=== PATIENT | male | born 1950 | race Caucasian/White ===

== ENCOUNTER 2021-02-08 12:44 | Inpatient (IN) | payer MEDICARE, OTHER ==
[~2021-02-08] VITALS: Ht 167.6 cm; Wt 68.6 kg
--- NOTE | ~2021-02-08 | DS ---
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 He presented to the emergency room where he was evaluated by Dr. Fish with severe right-sided abdominal pain which began the night previous prior to going to bed. Evaluation in the emergency room included a CBC which showed a white count elevated to 17.3 and a normal Chem profile and urinalysis, but a CT scan performed showed a markedly distended cecum and partially distended right colon, questionable pneumatosis of the cecal wall. He also had a hiatal hernia 17 mm subpleural nodular change, which was likely benign. He is admitted for further evaluation. Additionally, the patient has had in the past, a right inguinal hernia repair by Dr. Williamson as well as an umbilical hernia repair. He has no family history of inflammatory bowel disease or colon cancer. PERTINENT PHYSICAL EXAMINATION: GENERAL: Showed a pleasant white man who did not look systemically toxic. VITAL SIGNS: Temperature is 98.5, pulse 77, blood pressure 110/58, pulse oximetry 94%. NECK: Trachea midline. CHEST: Clear with normal respiratory excursion. ABDOMEN: Nondistended. It is quite firm. There is no focal tenderness of the left side. There is mild to moderate tenderness in the right mid abdomen and a large right inguinal incision and apparent circumumbilical scar as well. There was no sign of hernia. HOSPITAL COURSE: He was admitted, given fluids and IV antibiotics on the consideration of idiopathic right colonic dilation. The findings did not appear to be consistent with a cecal volvulus per se and cecal bascule (essentially a variant) was considered a possibility though not certainty. He had some left-sided abdominal pain in addition to the right-sided abdominal pain, but no peritonitis proper. LABORATORY STUDIES: Showed improvement with systemic antibiotics to 14.1 white blood cell count. COVID test and other viral tests screening were negative as was the urinalysis. He did have a fever spike to 101. It was considered a possibility that this represented right colonic ischemia siri to typical ischemic colitis on the left side. The patient has never had colonoscopy in the past. PATIENT NAME: KHARI DE LEON DISCHARGE SUMMARY DATE OF : 46 REPORT #: [id number] PHYSICIAN: AMAYA DIEHL MD PCP: VA PARKS MD REPORT IS CONFIDENTIAL AND NOT TO BE RELEASED WITHOUT AUTHORIZATION [facility] [address] [place] [id number] Draft The patient was noted at 48 hours from admission to have an elevated bilirubin of 5.7, but other liver enzymes were normal. An abdominal KUB showed persistent dilation of the right colon with the cecum approximately 12 cm in size. The colon is not improving over time quite obviously. On that basis, a CT scan with IV contrast was repeated which continues to show marked dilation of the cecum and visualization of the appendix which might show inflammation as well. This is based on interpretation of Dr. Mohan. On February 10, 2021, he underwent laparoscopy to better characterize the problem and in particular to assure that there was no cecal bascule (variant of torsion). The cecum appeared viable on laparoscopy and was decompressed without problem. Mobilization of the cecum showed an infarcted and necrotic appendix in pieces. Operation consisted of laparoscopic decompression of the cecum, mobilization of the right colon and retrocecal area with evacuation of abscess and necrotic debris as well as partial colectomy of the cecum with concurrent appendectomy by debridement method as well as laparoscopic cholecystectomy with intraoperative cholangiogram as the gallbladder itself was quite obviously significantly inflamed. The gallbladder did show small bits of stone. A drain was placed in the retrocecal area given the necrotic appendix. At that point, it was considered probable that the cecal dilation and the right colonic dilation was essentially a segmental ileus related to the perforated appendix. He had improvement of his symptoms quite markedly initially. The following day, however, he was noted to have egress of fecal material from the right retrocolonic drain. On that basis, he underwent operation on February 11, 2021 which included laparoscopy showing inflammatory changes in the region of the right abdomen and an obvious area of ischemia of the right colon including some apparent leakage of enteric fluid, not far from a colonic staple line. On that basis, he was converted to open laparotomy where he is found to have essentially nonviable cecum. A right colectomy was performed with an end-to-side ileotransverse colostomy. Irrigation was undertaken. Cultures obtained and a drain once again placed in the right posterior abdominal area. It was unclear if cecal infarction was a progression of the underlying problem to begin with or a new phenomenon possibly related to persistent dilation of the cecum and microvascular thrombosis. Pathology report is pending. His course thereafter was relatively straightforward with daily progression of function of bowel, initiation of liquids promptly and converting ultimately to solid diet. He did have one episode of significant abdominal pain, which prompted an abdominal KUB, which showed air within the left colon. No evidence of small-bowel obstruction and certainly no evidence of complication otherwise. In due course, his white count came down to normal at 10.1. He was converted from meropenem IV antibiotic to oral PATIENT NAME: KHARI DE LEON DISCHARGE SUMMARY DATE OF : 46 REPORT #: [id number] PHYSICIAN: AMAYA DIEHL MD PCP: VA PARKS MD REPORT IS CONFIDENTIAL AND NOT TO BE RELEASED WITHOUT AUTHORIZATION [facility] [address] [place], [place] [address] Draft antibiotic Cipro and Flagyl. The cultures done at the most recent operation did confirm E coli which was pansensitive except to ampicillin. By the day of discharge, he is ambulating well, tolerating a solid diet, has incisional pain well controlled with oral analgesics. FOLLOWUP PLAN: He is return to see me in approximately 4 weeks. He is instructed to maintain a low-fiber diet for the next 4 weeks generally speaking. There may be anastomotic edema of the ileotransverse colonic anastomosis that is accounting for some of his postoperative symptoms though they are essentially resolved now. He is advised to lift no more than 20 pounds for the next three weeks. He should walk on a daily basis otherwise. DISCHARGE MEDICATIONS: Include: 1. Cipro 500 mg p.o. b.i.d., #6. 2. Flagyl 250 mg p.o. three times a day, #9. 3. Percocet 7.5/325 1-2 p.o. q.6 hours as needed for pain, #10. 4. Tylenol 1000 mg p.o. q.6 hours p.r.n. pain, #60. 5. Famotidine 20 mg p.o. q.12 hours #60, no refill. 6. He may initiate ibuprofen 600 mg p.o. q.i.d. at home if the other medications are not controlling his well enough. DISCHARGE DIAGNOSES: 1. Cecal dilation of uncertain etiology with concurrent infarcted necrotic retrocecal appendicitis and small abscess status post laparoscopy, decompression of cecum, excision and debridement of necrotic appendix and drainage of retrocecal abscess with placement of drain. 2. 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 3. Right inguinal hernia repair (distant past). 4. History of umbilical hernia repair. (The patient has no primary care physician currently.). MD GHISLAINE Ferrara/RAQUEL PATIENT NAME: KHARI DE LEON DISCHARGE SUMMARY DATE OF : 46 REPORT #: [id number] PHYSICIAN: AMAYA DIEHL MD PCP: VA PARKS MD REPORT IS CONFIDENTIAL AND NOT TO BE RELEASED WITHOUT AUTHORIZATION [address] [address] Draft /[id number] cc: Dr. Fish Copies: ~ PATIENT NAME: KHARI DE LEON DISCHARGE SUMMARY DATE OF : 46 REPORT #: [id number] PHYSICIAN: AMAYA DIEHL MD PCP: VA PARSK MD REPORT IS CONFIDENTIAL AND NOT TO BE RELEASED WITHOUT AUTHORIZATION
[2021-02-08] MEDS ORDERED: CLARITIN10 MG PO (13:05)
--- NOTE | 2021-02-11 11:20 | OR ---
[facility] [address] [place], [place] [address] Signed DATE OF OPERATION: 02/10/2021 SURGEON: Amaya Diehl MD PREOPERATIVE DIAGNOSES: 1. Distended cecum (12.5 cm ongoing tenderness and elevated white count concerning for cecal bascule). 2. Dilated gallbladder, bilirubin 5.4. Liver enzymes otherwise normal. POSTOPERATIVE DIAGNOSES: 1. Dilated cecum without ischemia; retroperitoneal retrocecal abscess with necrotic perforated appendicitis. 2. Acutely inflamed gallbladder with small stone, normal intraoperative cholangiogram. PROCEDURES PERFORMED: 1. Laparoscopy with laparoscopic decompression of cecum. 2. Mobilization of right colon, examination of retrocecal area with evacuation of abscess and necrotic debris. 3. Laparoscopic partial colectomy with concurrent appendectomy. 4. Laparoscopic cholecystectomy with intraoperative cholangiogram. ANESTHESIA: General endotracheal, Markus Tash, ROAD WORKER and local 10 cc 0.25% Marcaine with epinephrine INDICATION: This 70-year-old white man was admitted to the hospital on by me with right-sided abdominal pain, elevated white count and a CT scan finding showing a markedly dilated right colon and cecum. There was some question of possible pneumatosis of the colonic wall, though that was uncertain. He was given intravenous antibiotic cefoxitin, IV fluids, resuscitation and observation and his symptoms have essentially not improved really. He has persistent tenderness on the right side, elevated white count, and finding today on liver enzymes of a bilirubin of 5.6, though actual liver enzymes are normal. On that basis, a repeat CT scan was performed to assess for vascular ischemic change or other findings. Upon close review of the CT scan consideration of a cecal bascule was made. His colon does not have a typical appearance of a cecal volvulus and no sbo. Appendix itself is visualized today in retrospect on the previous CT scan showing inflammation and edema. There is no fecalith. I have recommended laparoscopic evaluation and right colectomy as appropriate and other indicated procedures. Notably his gallbladder has been dilated on the CT scan as well. Electronically Signed By: AMAYA DIEHL MD 02/11/21 1120 PATIENT NAME: KHARI DE LEON OPERATIVE REPORT DATE OF : 46 REPORT #: [id number] PHYSICIAN: AMAYA DIEHL MD PCP: VA PARKS MD REPORT IS CONFIDENTIAL AND NOT TO BE RELEASED WITHOUT AUTHORIZATION [facility] [address] [place], [place] [address] Signed The extent that it contributes to his current symptoms is uncertain. FINDINGS: On laparoscopy, the cecum was massively dilated to be sure, but was not ischemic in any way. Decompression allowed for visualization more fully of the cecum and right colon and again no sign of ischemia, creeping fat or anything to suggest inflammatory bowel disease. Examination of the retroperitoneum by mobilizing the right colon and cecum showed a small abscess as well as necrotic debris and ultimately what was found to be a necrotic gangrenous appendix, no doubt contributing to the problem. In aggregate, the picture appeared suggestive of a localized right colonic ileus related to the appendiceal problem. Since there was no fecalith associated with the process, a partial cecectomy was performed on the possibility of malignancy as the underlying problem. Additional portions of cecum were resected in the decompression sites as well. Additionally noted was a quite markedly inflamed gallbladder. Whether it was a secondary effect of the aforementioned problem or contributed to the right-sided colonic ileus is uncertain. Cholecystectomy was performed, which did demonstrate a small gallstone and chronic inflammation and subacute inflammation of the mucosa of the gallbladder. Cholangiogram was normal. DESCRIPTION OF PROCEDURE: The patient was brought to the operating room, given a general endotracheal anesthetic. Cefoxitin antibiotic had been administered. A Maya catheter was placed. The abdomen was clipped and prepared with chlorhexidine solution and draped sterilely. Marked distention of the abdominal wall was noted. An infraumbilical incision was made and using an open Tania cannula technique, the abdomen was entered. Pneumoperitoneum was induced to 14 mm Hg with carbon dioxide gas. There was no sign of ascites or carcinomatosis nor sign of purulence or other abnormality. The cecum was dilated enough that appeared to take up the preponderance of the abdomen. Upper abdominal examination showed the transverse colon and distal right colon to be of reasonable caliber overall. As there was no ischemia of the cecum, a 5 mm trocar was placed in the right lower quadrant and then under direct visualization, the colon was decompressed with a needle trocar device. This allowed for complete decompression of the cecum and some of the right colon as well. The site was secured with an Endoloop at that point. The colon was quite markedly friable and inflamed and edematous, but certainly not ischemic in any way. The working diagnosis at the outset of the operation was possible cecal bascule or other cecal torsion. There did not appear to be a cecal bascule based on the findings noted. On that basis, mobilization of the right colon was undertaken using electrocautery and blunt dissection reflecting the mid right colon towards the Electronically Signed By: AMAYA DIEHL MD 02/11/21 1120 PATIENT NAME: KHARI DE LEON OPERATIVE REPORT DATE OF : 46 REPORT #: [id number] PHYSICIAN: AMAYA DIEHL MD PCP: VA PARKS MD REPORT IS CONFIDENTIAL AND NOT TO BE RELEASED WITHOUT AUTHORIZATION [facility] [address] [facility] [place] [address] Signed midline and ultimately showing that in the retroperitoneum was an abscess cavity as well as necrotic debris ultimately found related to a necrotic and gangrenous appendix with perforation. The normal terminal ileum was identified as evidenced by the fat pad of trieve. With blunt dissection, the appendix and the mesoappendix were better defined and debridement was undertaken of the necrotic material. The abscess cavity, though small, had a well-formed pocket and that was drained more fully. copioius irrigation with saline cleaned up the area well. Mindful that there was no fecalith on CT scan and mindful additionally of the possibility of neoplasm accounting for the problem, the appendix and the cecal base was elevated and a portion of cecum in continuity with the appendix was excised using an Endo-CLAUDY 60 mm stapling device. There was good hemostasis. The specimen was placed in an Endobag and extracted through the infraumbilical port site. Palpation of the specimen including the entire appendix and the portion of excised cecum showed no actual fecalith nor neoplasm proper. Irrigation and examination for hemostasis were undertaken. A few clips were applied to the areas of necrotic tissue that had minimal oozing. There appeared to be two sites on the colon that had been secured with Endoloops were decompressioned and then they were excised sequentially with the Endo-CLAUDY stapling device as well. The cecum and right colon appeared quite viable. Irrigation was undertaken and once complete clearance of the fluid was noted, some fibrin glue (Tisseel) was applied to the raw surface area of the retroperitoneum. Through he right lower quadrant trocar site, a 7 mm flat Delbert drain was placed behind the cecum, secured to the skin with nylon suture and ultimately attached to bulb suction. Examination of the remaining abdomen showed a markedly distended and inflamed gallbladder. It was unclear if this was a secondary effect of the inflammatory process of the abdomen or contributing to a right colonic ileus. The gallbladder also was too tensely distended to grasp and therefore decompression was required. An additional right upper quadrant 5 mm port was placed and the gallbladder more fully examined and found to be impressively inflammed and edematous. It was deemed best to proceed with cholecystectomy, particularly given the elevated bilirubin despite normal liver enzymes. Using blunt and electrocautery dissection, the triangle of Calot was dissected free ultimately identifying the cystic duct and cystic arterial branches. The cystic artery was doubly clipped and later divided. A window was created between the gallbladder and cystic duct and the angle of safety was maintained. A clip was applied across the gallbladder cystic duct junction and transverse choledochotomy made in the cystic duct. Egress of clear bile in small amounts was noted. Using the Hutchison type Electronically Signed By: AMAYA DIEHL MD 02/11/21 1120 PATIENT NAME: KHARI DE LEON OPERATIVE REPORT DATE OF : 46 REPORT #: [id number] PHYSICIAN: AMAYA DIEHL MD PCP: VA PARKS MD REPORT IS CONFIDENTIAL AND NOT TO BE RELEASED WITHOUT AUTHORIZATION [address] [address] Signed cholangiocatheter, intraoperative cholangiography was undertaken showing free flow of contrast in the duodenum and biliary tree in good retrograde filling. The cystic duct was rather small in diameter. The catheter was removed. The cystic duct was triply clipped and divided, noting no filling defects, biliary anomalies or other abnormality of the biliary tree. The gallbladder was then dissected free in a retrograde fashion using electrocautery. The gallbladder was extracted through the infraumbilical port site using an endobag, opened on the back table by the circulating nurse and found to have chronic and subacute inflammation of mucosa as well as a small yellow gallstone. Irrigation was undertaken in subhepatic space. There was good hemostasis, but an additional aliquot of Tisseel was applied to the gallbladder fossa. Reinspection of the right lower abdomen showed no sign of bleeding, enteric leakage or other problem. The drain remained in good position. Trocars were removed under direct visualization showing no sign of bleeding. The infraumbilical fascial incision reapproximated with interrupted 0 Vicryl suture. A 10 mL of 0.25% Marcaine with epinephrine was injected into the multiple trocar sites to the abdomen. The skin was then closed with interrupted 3-0 Vicryl. Steri-Strips were applied. The patient was ultimately extubated and transferred to the recovery room in good condition having suffered no complication. Sponge, needle, and instrument counts were reported as correct x3. MD GHISLAINE Ferrara/RAQUEL /[id number] cc: Dr. Fish Copies: ~ Electronically Signed By: AMAYA DIEHL MD 02/11/21 1120 PATIENT NAME: KHARI DE LEON OPERATIVE REPORT DATE OF : 46 REPORT #: [id number] PHYSICIAN: AMAYA DIEHL MD PCP: VA PARKS MD REPORT IS CONFIDENTIAL AND NOT TO BE RELEASED WITHOUT AUTHORIZATION
--- NOTE | 2021-02-11 11:20 | HP ---
[facility] [address], [place] [address] Signed ADMISSION DATE: 02/08/2021 REASON FOR ADMISSION: Right-sided abdominal pain, colonic distention, possible colitis. HISTORY OF PRESENT ILLNESS: This 70-year-old white man presents to the emergency room, was evaluated by Dr. Fish with severe right-sided abdominal pain. It began last night and he went to bed with it, but it awakened him as it progressed. It was considered in a mid abdominal belt like configuration both on left and right side. It was not associated with diarrhea or blood per rectum. He has had no nausea or vomiting. He has had no blood per rectum or even a bowel movement since the pain began. Evaluation in the emergency room by Dr. Fish included a CBC, which showed elevation to 17.3. Chem profile was normal. Urinalysis was also essentially normal. A CT scan was performed, which showed a distended cecum and right colon with questionable pneumatosis. I did not see that particular finding, though I did look for it. He also had a left lower lobe 17 mm subpleural nodular change. There was a hiatal hernia as well. The patient denies any family history of colon cancer or inflammatory bowel disease. He has never had problems of a similar nature in the past. PAST MEDICAL HISTORY: Includes neck surgery in [place] as well as hernia operation in the past. ALLERGIES: He has no known drug allergies. MEDICATIONS: His only medication is Claritin as needed for allergies. REVIEW OF SYSTEMS: Denies any chest pain or shortness of breath. He has had no hematemesis or blood per rectum. Denies any hemoptysis. His pain is dominantly in the right side and is persistent and ril-[id number]-[id number] grade. 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 He is unmarried () and lives alone. 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 Electronically Signed By: AMAYA DIEHL MD 02/11/21 1120 PATIENT NAME: KHARI DE LEON HISTORY AND PHYSICAL DATE OF : 46 REPORT #: [id number] PHYSICIAN: AMAYA DIEHL MD PCP: VA PARKS MD REPORT IS CONFIDENTIAL AND NOT TO BE RELEASED WITHOUT AUTHORIZATION [facility] [address], [place] [address] Signed PHYSICAL EXAMINATION: GENERAL: Pleasant white man, who does not look systemically toxic. VITAL SIGNS: On presentation, temperature was 98.5, pulse now 77, blood pressure 110/58, pulse oximetry on room air is 94%. NECK: Trachea is midline. CHEST: Shows normal respiratory excursion. Pulses regular. ABDOMEN: Nondistended. It is firm, however. There is no focal tenderness on the left side. There is mild to moderate tenderness in the right mid abdomen. There is a large right inguinal incision and apparent circumumbilical scar as well. No sx of hernia. EXTREMITIES: Show no clubbing, cyanosis, or edema. Extremities show petechiae and femoral pulses are 2/[address] scan was reviewed in detail by me. The liver appears normal as does the gallbladder. The spleen and kidneys are normal as is the aorta. There was marked good dilation of the cecum and right colon, but colonic wall appears reasonably thin. The transverse colon and left colon are normal in caliber. Small bowel appears normal. There is no sign of small-bowel obstruction. There does not be appear to be a finding of cecal or right colonic volvulus. The mid transverse colon on AP projection appears to dip down low in the abdomen. I do not see the actual pneumatosis of the colon as was described by the radiologist, though my screen for resolution is likely less capable. ASSESSMENT: It is uncertain the source of his issue, but he does have right colonic distention and concerns of ischemia are made on that basis. He does not appear to have volvulus and there is no pericolonic fluid or signs of viv perforation. I discussed these findings with him in detail. Concern is always maintained for possible idiopathic right colonic ischemia, for which perforation could be a natural progression, however, unlikely that might be. I think the best thing in his situation would be admitted to the hospital, maintain hydration and bowel rest and give IV antibiotics and clinically monitor. At some point, he will need a colonoscopy; he has never undergone colonoscopy in the past. If his symptoms should worsen and he require emergency operation, it can be promptly performed while in the hospital and this won't rely upon his return to the ER should symptoms progress. He agrees with this approach and will be admitted on that basis. Amaya Diehl MD Electronically Signed By: AMAYA DIEHL MD 02/11/21 1120 PATIENT NAME: KHARI DE LEON HISTORY AND PHYSICAL DATE OF : 46 REPORT #: [id number] PHYSICIAN: AMAYA DIEHL MD PCP: VA PARKS MD REPORT IS CONFIDENTIAL AND NOT TO BE RELEASED WITHOUT AUTHORIZATION [facility] [address] [place], [place] [address] Signed /[facility] /[id number] Copies: ~ Electronically Signed By: AMAYA DIEHL MD 02/11/21 1120 PATIENT NAME: KHARI DE LEON HISTORY AND PHYSICAL DATE OF : 46 REPORT #: [id number] PHYSICIAN: AMAYA DIEHL MD PCP: VA PARKS MD REPORT IS CONFIDENTIAL AND NOT TO BE RELEASED WITHOUT AUTHORIZATION
--- NOTE | 2021-02-12 14:50 | PATH ---
[facility] [address] [place] [address], [place] [address] Signed SPECIMEN(S): A PORTION OF CECUM WITH APPENDIX SPECIMEN(S): B ADDITIONAL PORTION OF CECUM X2 SPECIMEN(S): C GALLBLADDER SPECIMEN SOURCE: A. PORTION OF CECUM WITH APPENDIX B. ADDITIONAL PORTION OF CECUM X2 C. GALLBLADDER CLINICAL HISTORY: Gangrenous perforated appendix; right colon distention; acute calculous cholecystitis FINAL PATHOLOGIC DIAGNOSIS: A. Portion of cecum with appendix, segmental resection: - Acute necrotizing appendicitis. - Colonic mucosa with areas of transmural necrosis, acute serositis, and serosal adhesions. B. Additional portion of cecum, segmental resection: - Reactive colonic mucosa with acute serositis and serosal adhesions. C. Gallbladder, cholecystectomy: - Chronic cholecystitis. DDF:cml:C2NR MICROSCOPIC EXAMINATION: Histologic sections of all submitted blocks are examined by light microscopy. These findings, together with the gross examination, support the pathologic diagnosis. GROSS DESCRIPTION: Three specimens are received in three containers, labeled "MH." A. The specimen, labeled "MH, A," and designated on the requisition "portion of cecum with appendix," is received in formalin and consists of an 8.5 cm long, up to 0.7 cm in diameter appendix with attached mesoappendix up to 2.1 cm wide. Additionally the proximal appendix has an attached, 1.5 cm long, up to 3.8 cm in diameter segment of cecum. The proximal cecal margin is closed by a 4.6 cm long staple line which is removed and the margin is inked black. The appendiceal serosa is ragged, childs to dark brown, and diffusely covered in valdivia exudate. The appendiceal wall is markedly thinned and 2.5 cm from the staple line is a 0.3 x 0.3 cm transmural defect that is PATIENT NAME: KHARI DE LEON PATHOLOGY DATE OF : 46 REPORT #: [id number] PHYSICIAN: SANDRO PATHOLOGY PCP: VA PARKS MD REPORT IS CONFIDENTIAL AND NOT TO BE RELEASED WITHOUT AUTHORIZATION [facility] [address] [place] [address], [place] [address] Signed inked blue. An additional transmural defect is not grossly identified. The cecal serosa is ragged, childs to dark red with multiple focal adhesions. The appendiceal mucosa is childs to black and somewhat ragged. The appendiceal lumen contains dark red liquid. Fecaliths are absent. The cecal mucosa is childs-pink with usual folds and without a discrete mass/lesion. The attached adipose tissue is briefly palpated for lymph nodes and no lymph nodes are grossly found. Telephone Operators Supervisor sections are submitted in two cassettes (A1-A2). Note: Per container "Rec'd fresh. I put formalin on it. -Donna JONES)" B. The specimen, labeled "MH, B," and designated on the requisition "additional portion of cecum 2," is received in formalin and consists of two undesignated, unopened bowel segments. The first bowel segment measures 4.2 x 1.5 x 0.7 cm and is closed by a single 4.4 cm long staple line which is removed and the underlying tissue is inked black. Additionally within the staple line is a blue suture. The bowel segment has a scant amount of attached adipose tissue up to 0.1 cm wide. The bowel serosa is childs, smooth, and glistening. The bowel mucosa childs with a lack of folds and without an additional discrete mass/lesion. The second bowel segment is 5.5 x 1.7 x 1.6 cm and is closed by a single, 5.7 cm long staple line which is removed and the underlying tissue is inked blue. Opposite to the staple line is a blue suture. The bowel serosa is childs to brown, glistening with rare focal delicate childs adhesions. The bowel segment has attached adipose tissue up to 1.2 cm wide. The adipose tissue is somewhat incarcerated by the blue suture. The bowel mucosa is childs with a slight lack of folds, and without a discrete mass/lesion. Telephone Operators Supervisor sections are submitted as follows: B1 first bowel segment B2 second bowel segment C. The specimen, labeled "MH, C," and designated on the requisition "gallbladder," is received in formalin and consists of: Specimen: Previously incised gallbladder. Dimensions: Upon reconstruction, 9.0 x 3.5 x 2.2 cm. Serosa: Mostly fat covered, childs-white to green, smooth, and glistening. Cystic Duct: 0.4 cm in diameter, patent, and the margin is inked blue. Calculi: Absent within specimen and specimen container. Mucosa: Green, velvety, and glistening with rare, focal, and scanty areas of PATIENT NAME: KHARI DE LEON PATHOLOGY DATE OF : 46 REPORT #: [id number] PHYSICIAN: SANDRO RAMIREZ PCP: VA PARKS MD REPORT IS CONFIDENTIAL AND NOT TO BE RELEASED WITHOUT AUTHORIZATION [address] [address] Signed yellow stippling. Wall thickness: Uniform and 0.2 cm. Lymph node: No pericystic lymph nodes are grossly identified. Additional: None. Telephone Operators Supervisor sections are submitted in cassette C1. AI (under the direct supervision of a pathologist) The Gross Description was prepared using a voice recognition system. The report was reviewed for accuracy; however, sound-alike word errors, addition and/or deletions may occur. If there is any question about this report, please contact Client Services. PERFORMING LABORATORY: The technical component [place] [address] (Director Of Nurses Registry: Samina Rondon MD; CLIA# [id number]). Professional interpretation was performed [place] [address] (CLIA# [id number]). Diagnostician: Clement Knight DO Pathologist Electronically Signed 02/12/2021 Copies: ~ PATIENT NAME: KHARI DE LEON PATHOLOGY DATE OF : 46 REPORT #: [id number] PHYSICIAN: SANDRO RAMIREZ PCP: VA PARKS MD REPORT IS CONFIDENTIAL AND NOT TO BE RELEASED WITHOUT AUTHORIZATION
[2021-02-17] MEDS ORDERED: OXYCODON-ACETA1 EAC2 PO (09:12)
[2021-02-17] MEDS ORDERED: METRONIDAZOLE250 MG PO (09:12)
[2021-02-17] MEDS ORDERED: CIPROFLOXACIN500 MG PO (09:12)
[2021-02-17] MEDS ORDERED: ACETAMINOPHEN500 MG PO (09:13)
[2021-02-17] MEDS ORDERED: FAMOTIDINE20 MG PO (09:13)
--- NOTE | 2021-02-18 14:44 | OR ---
[facility] [address], [place] [address] Signed DATE OF OPERATION: 02/11/2021 SURGEON: Amaya Diehl MD PREOPERATIVE DIAGNOSES: 1. Fecal drainage from right retrocecal abdominal drain. 2. Status post laparoscopic cecal decompression for dilated cecum, retroperitoneal abscess drainage and appendectomy and cholecystectomy with cholangiogram (February 10, 2021). 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 PROCEDURES: 1. Diagnostic laparoscopy. 2. Open right colectomy with end-to-side ileotransverse colostomy. ANESTHESIA: General endotracheal, Rob Rucker [employer]ORY TE[employer]ER, and postoperative bilateral subcostal TAP blocks. INDICATION: This 70-year-old white man was admitted on 02/08/2021 with marked dilation of the cecum and portion of the right transverse colon with no sign of proximal small bowel obstruction. The clinical appearance was not that of cecal volvulus. Initial evaluation and treatment included IV antibiotics, IV fluids, and monitoring and he did not seem to have improvement, only persistent distention. He underwent a 2nd CT scan, which showed persistence of the dilated cecum, findings of an inflamed appendix, and no other abnormality. He yesterday underwent laparoscopy on the thought this may represent a cecal bascule rather than typical cecal volvulus. Decompression of the cecum was undertaken and the cecum appeared viable. Mobilization of the right colon showed a completely infarcted and necrotic appendix with small abscess. This was resected back to what appeared to be normal cecum and the base of the cecum was transected in continuity with the appendix. Puncture sites on the anterior wall of the cecum were secured with a stapling device as well. He was noted also to have concurrent acute cholecystitis. On that basis, cholecystectomy with cholangiogram was performed. The patient improved quite markedly overnight and evaluation this morning showed the drain fluid to be serous and without sign of enteric leakage. Late in the day, he had this rather sudden onset of right-sided abdominal pain and was noted to have fecal Electronically Signed By: AMAYA DIEHL MD 02/18/21 1444 PATIENT NAME: KHARI DE LEON OPERATIVE REPORT DATE OF : 46 REPORT #: [id number] PHYSICIAN: AMAYA DIEHL MD PCP: VA PARKS MD REPORT IS CONFIDENTIAL AND NOT TO BE RELEASED WITHOUT AUTHORIZATION [facility] [address] [place] [id number] Signed drainage out of the retrocecal drain. On that basis, I recommended laparoscopy to assess the source of his fecal leakage and given the dilated cecum that was previously noted with high risk for progressing to ischemia, possible colectomy as appropriate. The risks of bleeding, infection, need for ostomy, need for right colon resection and so forth were reviewed in detail. FINDINGS: On laparoscopy, he was found to have the peritoneal cavity essentially free of peritoneal contamination. However, in the retrocecal area was infarcted cecum in the area of previous appendectomy. There were additionally several micro leaks on the anterior wall of the cecum, not on the staple line itself, but only a few centimeters from it. Quite clearly, the cecum was nonviable, and on that basis, colectomy was required. On that basis also, conversion to open operation was undertaken. Ultimately performed was right colectomy with ileotransverse colostomy in an end-to-side configuration. The anastomosis portion of the transverse colon was quite viable, nondilated, and corresponding to good mesenteric flow of middle colic artery branches, which were easily visualized. There were no other findings of concern. A drain was placed in the right posterior abdomen at the conclusion of the procedure. DESCRIPTION OF PROCEDURE: The patient was brought to the operating room, given a general endotracheal anesthetic. The patient has been on meropenem antibiotic. After satisfactory general endotracheal anesthesia, a Maya catheter was placed. The abdomen was prepared with chlorhexidine solution after removal of the drain that had fecal material within it. The previous infraumbilical incision was opened and pneumoperitoneum was achieved to a level of 14 mmHg of carbon dioxide gas. Intraabdominal inspection showed no sign of generalized peritonitis or generalized peritoneal contamination. However, the cecum itself was dilated and had a far less viable appearance today. A staple line that was on the anterior wall of the cecum that had secured the initial puncture site was intact, however, adjacent to it a few millimeters was the area of obvious leakage. The cecum itself appeared to be nonviable though the ascending colon appeared normal. There was no abnormal twist or kink to the cecum, but it certainly did not appear viable and further efforts at its repair would be futile. On that basis, the laparoscope was removed and plans made for laparotomy. A midline incision was made extending from below the umbilicus to somewhat above it and later extended inferiorly. The abdomen was entered and examination showed no sign of free fluid or free peritoneal contamination. The cecum and proximal ascending colon were rather nonviable and ischemic, though not black or gangrenous in any way. The Bookwalter retractor was affixed to the table and the small bowel was packed to the left side of the abdomen. Mobilization of the right colon was undertaken showing gross Electronically Signed By: AMAYA DIEHL MD 02/18/21 1444 PATIENT NAME: KHARI DE LEON OPERATIVE REPORT DATE OF : 46 REPORT #: [id number] PHYSICIAN: AMAYA DIEHL MD PCP: VA PARKS MD REPORT IS CONFIDENTIAL AND NOT TO BE RELEASED WITHOUT AUTHORIZATION [facility] [address] [place], [place] [address] Signed contamination and fecal soilage in the retroperitoneum adjacent to the cecum. The area of previous resection appeared to have held no staple line at all. Quite clearly, right colectomy would be required. The ileum was freed from its peritoneal attachments, and using blunt electrocautery dissection, the entire right colon mobilized to the midline. There was no sign of retroperitoneal abnormality other than the contamination from the diseased colon. The hepatic flexure was mobilized. Several clips were applied to vascular pedicles as necessary, and ultimately, the mid transverse colon and omentum freed. Transillumination of the mesocolon at the transverse portion showed two dominant vascular pedicles (middle colic arteries). An area demarcated as appropriate for resection was thus identified. The mesentery was scored with electrocautery. The vascular pedicles were sequentially secured with hemostats and ligated with 0 silk ties. A CLAUDY stapling device was used to transect the ileum a few centimeters from the ileocecal junction as well as the transverse colon. An additional segment was taken for good measure to assure that the middle colic artery would supply this portion of the transverse colon for a viable anastomosis. The specimen was subsequently photographed by the circulating nurse. Plans were then made for anastomosis. The staple line of the transected colon was oversewn with interrupted 3-0 silk sutures to assure no leakage. An end-to-side ileal transverse colostomy was then performed in a 2-layer technique of interrupted 3-0 silk suture and interrupted 3-0 Vicryl suture. Both proximal and distal segments appeared quite viable. The mesenteric defect was reapproximated with interrupted 3-0 silk suture. Irrigation was undertaken of the abdomen, particularly in the retroperitoneal area. Through previous drain site, a 7 mm flat Delbert drain was insinuated into the abdominal cavity, placed in the area of recent contamination. It was ultimately attached to bulb suction. The small bowel was released from its encumbrance of packing and the omentum replaced over the abdominal contents including the area of the anastomosis. The midline fascia was reapproximated with running bidirectional #1 PDS suture. Subcutaneous tissue was irrigated and the skin closed with running subcuticular 3-0 Vicryl. Steri-Strips were applied on the midline incision. An Acticoat dressing was applied on the midline incision and the drain site. The patient was ultimately given bilateral subcostal TAP blocks by the nail kegger. He was extubated and ultimately transferred to the recovery room in good condition. ESTIMATED BLOOD LOSS: Less than 50 mL. Electronically Signed By: AMAYA DIEHL MD 02/18/21 1444 PATIENT NAME: KHARI DE LEON OPERATIVE REPORT DATE OF : 46 REPORT #: [id number] PHYSICIAN: AMAYA DIEHL MD PCP: VA PARKS MD REPORT IS CONFIDENTIAL AND NOT TO BE RELEASED WITHOUT AUTHORIZATION [address] [address] Signed COUNTS: Sponge, needle, and instruments counts were reported as correct x3. MD GHISLAINE Ferrara/RAQUEL /[id number] cc: Dr. Fish Copies: ~ Electronically Signed By: AMAYA DIEHL MD 02/18/21 1444 PATIENT NAME: KHARI DE LEON OPERATIVE REPORT DATE OF : 46 REPORT #: [id number] PHYSICIAN: AMAYA DIEHL MD PCP: VA PARKS MD REPORT IS CONFIDENTIAL AND NOT TO BE RELEASED WITHOUT AUTHORIZATION
--- NOTE | 2021-02-18 14:58 | PATH ---
[facility] [address], [place] [address] Signed SPECIMEN(S): A RIGHT COLON AND CECUM SPECIMEN SOURCE: A. RIGHT COLON AND CECUM CLINICAL HISTORY: Status post partial cecectomy with appy status post, with leakage of bowel. Right-sided ischemic colitis. FINAL PATHOLOGIC DIAGNOSIS: Right colon and cecum, resection: - Focal transmural cecal defect with features of perforation, associated abscess, acute serositis, and serosal fibrous adhesions. - Ileum with acute serositis. - One lymph node with no evidence of malignancy. - Viable surgical margins. - Additional segment of bowel: Segment of colon with no histopathologic abnormality; viable surgical margins. - No evidence of malignancy. NAL:cml:C2NR MICROSCOPIC EXAMINATION: Histologic sections of all submitted blocks are examined by light microscopy. These findings, together with the gross examination, support the pathologic diagnosis. GROSS DESCRIPTION: The specimen, labeled "MH," and designated on the requisition "right colon and cecum, S/P partial colectomy with appy S/P, with leakage of bowel," is received in formalin and consists of one previously partially opened colonic segment and one additional bowel segment. The additional bowel segment is 3.7 cm long, 2.6 cm in diameter, unoriented, and has attached adipose tissue up to 7.5 cm wide. One end is closed by a 4.2 cm long staple line which is removed and the underlying tissue is inked red. The opposing end is closed by a 6.8 cm staple line which is removed and the underlying tissue is inked green. The bowel serosa is childs, smooth, glistening. The bowel mucosa is childs to brown with usual folds and without a discrete mass/lesion. The attached adipose tissue is palpated for lymph nodes and no lymph nodes are grossly identified. PATIENT NAME: KHARI DE LEON PATHOLOGY DATE OF : 46 REPORT #: [id number] PHYSICIAN: SANDRO PATHOLOGY PCP: VA PARKS MD REPORT IS CONFIDENTIAL AND NOT TO BE RELEASED WITHOUT AUTHORIZATION [facility] [address], [place] [address] Signed The colonic segment is 21.7 cm long, from 2.9 up to 5.7 cm in diameter, has an attached terminal ileum and has attached adipose tissue up to 17.2 cm wide. A grossly identifiable appendix is not identified. The distal colonic margin is closed by a 4.2 cm long staple line which is removed and the underlying tissue is orange. The proximal terminal ileum is closed by a 2.8 cm long staple line which is removed and the underlying tissue is inked black. The cecal pouch has a 7.2 x 3.2 cm transmural defect consistent with a possible previous incision. The defect is without grossly identifiable sutures or carla and is inked blue. Adjacent to the transmural defect, 1.0 cm away, is an ill-defined, 3.5 cm in greatest dimension staple line that is embedded in adhesions and adipose tissue. This staple line contains a black single suture. The staple line is removed and the underlying tissue is inked green. The staple line is without an associated mass/lesion. The serosa on the cecal pouch, surrounding the transmural defect is dark brown with multiple adhesions and areas of valdivia exudate. The remaining serosa is childs to brown with focal areas of delicate adhesions. The colonic mucosa is childs to brown with a slight loss of folds in the cecal pouch. Additionally the cecal pouch, adjacent to the blue inked transmural defect, has focal areas of submucosal hemorrhage up to 1.5 cm in greatest dimension. An additional discrete mass/lesion is not grossly identified. The attached terminal ileum is 3.8 cm long, 1.7 cm in diameter, and the serosa is childs, glistening with focal rare adhesions. The terminal ileum mucosa childs with usual folds and without a discrete mass/lesion. The attached adipose tissue is palpated for nodes and no lymph nodes are grossly identified. Customer Operations Representative sections are submitted as follows: A1-A2 additional bowel segment A3 colonic transmural defect with adjacent hemorrhage A4 colonic transmural defect with adjacent adherent valdivia exudate A5 colonic transmural defect to green inked staple line adjacent to defect A6 remaining colon A7 ileocecal valve A8 terminal ileum AI (under the direct supervision of a pathologist) The Gross Description was prepared using a voice recognition system. The report was reviewed for accuracy; however, sound-alike word errors, addition and/or deletions may occur. If there is any PATIENT NAME: KHARI DE LEON PATHOLOGY DATE OF : 46 REPORT #: [id number] PHYSICIAN: SANDRO RAMIREZ PCP: VA PARKS MD REPORT IS CONFIDENTIAL AND NOT TO BE RELEASED WITHOUT AUTHORIZATION [facility] [address] [place] [id number] Signed question about this report, please contact Client Services. PERFORMING LABORATORY: The technical component was performed by [facility], [address] [place] [id number] (Media Center Specialist: Samina Rondon MD; CLIA# [id number]). Professional interpretation was performed by [facility], [facility], [address] [place] [address] (CLIA# [id number]). Diagnostician: Misty Palomo MD Pathologist Electronically Signed 02/18/2021 Copies: ~ PATIENT NAME: KHARI DE LEON PATHOLOGY DATE OF : 46 REPORT #: [id number] PHYSICIAN: SANDRO RAMIREZ PCP: VA PARKS MD REPORT IS CONFIDENTIAL AND NOT TO BE RELEASED WITHOUT AUTHORIZATION
== END 2021-02-18 15:00 | disposition home or self-care (01) | DRG 329 ==
LOC: ED 12:44 → MS 16:02
PROVIDERS: ADMIT Surgery; ATTEND Surgery
PROC: 0DBH4ZZ Excision of Cecum, Percutaneous Endoscopic Approach (ICD-10-PCS; 2021-02-10)
PROC: BF121ZZ Fluoroscopy of Gallbladder using Low Osmolar Contrast (ICD-10-PCS; 2021-02-10)
PROC: 0DTJ4ZZ Resection of Appendix, Percutaneous Endoscopic Approach (ICD-10-PCS; principal; 2021-02-10 13:25)
PROC: 0D1L0Z4 Bypass Transverse Colon to Cutaneous, Open Approach (ICD-10-PCS; 2021-02-11)
PROC: 0DBF0ZZ Excision of Right Large Intestine, Open Approach (ICD-10-PCS; 2021-02-11)
PROC: 0DJD4ZZ Inspection of Lower Intestinal Tract, Percutaneous Endoscopic Approach (ICD-10-PCS; 2021-02-11)
DX: K59.39 Other megacolon (principal); K68.19 Other retroperitoneal abscess; K35.33 Acute appendicitis with perforation, localized peritonitis, and gangrene, with abscess; K55.9 Vascular disorder of intestine, unspecified; K80.00 Calculus of gallbladder with acute cholecystitis without obstruction; Z20.822 Contact with and (suspected) exposure to COVID-19
CPT/HCPCS: 00790; 74018; 74177; 74300; 80048; 80053; 81001; 83605; 85025; 86140; 87070; 87075; 87205; 88304; 88307; 94760; 96375; 96376; 99285-25; C9803; J0131; J0330; J0694; J1100; J1644; J1885; J2001; J2185; J2270; J2405; J2704; J2795; J3010; J3475; J7030; J7121; Q9967; U0003

== ENCOUNTER 2021-11-24 07:05 | Day surgery (SDC) | payer MEDICARE, OTHER ==
[~2021-11-24] VITALS: Ht 167.6 cm; Wt 63.2 kg
[~2021-11-24 07:05] MED LIST: ACETAMINOPHEN500 MG PO; CIPROFLOXACIN500 MG PO; CLARITIN10 MG PO; FAMOTIDINE20 MG PO; METRONIDAZOLE250 MG PO; OXYCODON-ACETA1 EAC2 PO
--- NOTE | 2021-11-24 08:23 | NUR ---
VISITED WITH PT PRIOR TO SURGERY. DAUGHTER WAS WITH PT. PT EXPRESSED FEELING CONFIDENT WITH PROCEEDURE. PRAYED WITH PT.
--- NOTE | 2021-11-24 09:04 | NUR ---
11/24/21 0904 Sejal Zhang 0843 PT ARRIVED IN PACU SLEEPY WITH NO C/O'S. 0855 DR AT BEDSIDE. ALL QUESTIONS ANSWERED. 903 RESTING. REU.
--- NOTE | 2021-11-25 19:03 | OR ---
[facility] [address], [place] [address] Signed DATE OF OPERATION: 11/24/2021 SURGEON: Amaya Diehl MD PREOPERATIVE DIAGNOSES: 1. History of right colectomy for ischemic disease. 2. Screening colonoscopy (no prior colonoscopy). POSTOPERATIVE DIAGNOSES: 1. Ileocolic anastomotic, small nodule (benign). 2. Low rectal polyp (small). PROCEDURE: Total colonoscopy with cold morcellation polypectomy of low rectal polyp and excision of anastomotic nodule. ANESTHESIA: Intravenous sedation fentanyl 100 mcg and Versed 5 mg. INDICATION: This 71-year-old white man is a patient of Dr. Parks. More than a year ago, he underwent appendectomy for necrotic perforated appendicitis manifesting most dominantly as a dilated cecum. He required return to the OR following appendectomy and decompression of the cecum for cholecystectomy and right colectomy when fecal drainage was noted from his retrocolic drain. He has recovered fully from that. Of special note, he has never had colonoscopy or colon evaluation in the past. He has no symptoms of bleeding, diarrhea or constipation and no family history of colon cancer. He is admitted at this time to undergo colonoscopy. He understands the risks of bleeding, infection, and perforation. FINDINGS: Prep was good. Complete colonoscopy was undertaken to the ileocolic anastomosis. There was a small nodule associated with the anastomotic area, probably a granuloma. Two small silk sutures were seen from prior anastomosis as well. The lesion is almost certainly benign. Additionally, there was a very small polyp of the low rectum, which was excised. The remaining colon was normal. PROCEDURE IN DETAIL: The patient was brought to the endoscopy suite and placed in lateral decubitus position given intravenous sedation to the point of slurred speech and nystagmus. Full Electronically Signed By: AMAYA DIEHL MD 11/25/21 190 PATIENT NAME: KHARI DE LEON OPERATIVE REPORT DATE OF : 46 REPORT #: [id number] PHYSICIAN: AMAYA DIEHL MD PCP: VA PARKS MD REPORT IS CONFIDENTIAL AND NOT TO BE RELEASED WITHOUT AUTHORIZATION [facility] [address], [place] [address] Signed cardiopulmonary monitoring was maintained. Digital rectal examination was normal including normal prostate. Olympus video colonoscope was passed in the rectum and manipulated throughout the colon ultimately intubating the ileocolic anastomotic area. There were two small sutures noted from prior anastomosis. There was a submucosal nodule, possibly a granuloma. This was excised though it did not appear to be worrisome for malignancy. The scope was then withdrawn and examination throughout showed no sign of abnormality into the lowest part of the rectum. There was a small polyp, this was excised with cold morcellation technique. The scope was removed. The patient was taken to the recovery room in good condition. CONCLUDING DIAGNOSIS: Small polyp of the rectum and anastomotic nodule almost certainly benign. PLAN: Recommend repeat colonoscopy in seven years, sooner if clinically indicated. He will return to the ongoing care of Dr. Parks. MD GHISLAINE Ferrara/RAQUEL /[id number] cc: Dr. Parks Copies: ~ Electronically Signed By: AMAYA DIEHL MD 11/25/21 1903 PATIENT NAME: KHARI DE LEON OPERATIVE REPORT DATE OF : 46 REPORT #: [id number] PHYSICIAN: AMAYA DIEHL MD PCP: VA PARKS MD REPORT IS CONFIDENTIAL AND NOT TO BE RELEASED WITHOUT AUTHORIZATION
== END 2021-11-24 09:43 | disposition home or self-care (01) ==
LOC: DS 07:05 → OPS 07:05
PROVIDERS: ATTEND Surgery
PROC: 0DBP8ZZ Excision of Rectum, Via Natural or Artificial Opening Endoscopic (ICD-10-PCS; principal; 2021-11-24 08:30)
DX: Z12.11 Encounter for screening for malignant neoplasm of colon (principal); K62.1 Rectal polyp; K63.89 Other specified diseases of intestine; Z90.49 Acquired absence of other specified parts of digestive tract; Z98.0 Intestinal bypass and anastomosis status
CPT/HCPCS: 88305; 99153; G0500; J2250; J3010; J7121

== ENCOUNTER 2024-05-18 05:38 | Day surgery (SDC) | payer MEDICARE, OTHER ==
[2024-05-03 15:19] VITALS: BP 135/76
[~2024-05-18] VITALS: Ht 167.6 cm; Wt 65.9 kg
[~2024-05-18 05:38] MED LIST changes: +LACTATED RINGER'S 1,000 ML IV SCH; +SLEEP AID25 M2 PO
[2024-05-18 05:55] VITALS: BP 113/79
[2024-05-18] MEDS ORDERED: LACTATED RINGER'S 1,000 ML IV SCH (06:30)
[2024-05-18] MEDS ORDERED: CEFTRIAXONE SODIUM 1 GM VIAL IV ONE (06:46)
[2024-05-18] MEDS ORDERED: SODIUM CHLORIDE 0.9% 100 ML IV ONE (06:49)
[2024-05-18] MEDS ORDERED: LIDOCAINE HCL 2% 20 ML MDV ONE (06:54)
[2024-05-18] MEDS ORDERED: SODIUM CHLORIDE 0.9% IV SCH (07:00)
[2024-05-18] MEDS ORDERED: CEFTRIAXONE SOD IV SCH (07:00)
[2024-05-18] MEDS ORDERED: IBLOOD GLUCOSE TEST STRIP 1 EA TEST VI PRN ×2 (07:00→08:00)
[2024-05-18] MEDS ORDERED: LIDOCAINE HCL 1% 5 ML SDV INJ ONE (07:00)
[2024-05-18] MEDS ORDERED: CEFTRIAXONE SOD 1,000 MG in DEXTROSE 5% 100 ML IV SCH (07:00)
[2024-05-18] MEDS ORDERED: CEFTRIAXONE SODIUM 1 GM in SODIUM CHLORIDE 0.9% 100 ML IV SCH (07:00)
[2024-05-18] MEDS ORDERED: TRAMADOL HCL 50 MG TAB PO PRN (07:30)
[2024-05-18] MEDS ORDERED: ondansetron HCL 4 MG/2 ML VIAL IV PRN ×2 (07:30→08:00)
[2024-05-18] MEDS ORDERED: NALOXONE HCL 0.4 MG SYR IV PRN (08:00)
[2024-05-18] MEDS ORDERED: fentaNYL citrate 50 MCG/ML SDV IV PRN (08:00)
[2024-05-18] MEDS ORDERED: METOCLOPRAMIDE HCL 10 MG/2 ML SDV IV PRN (08:00)
[2024-05-18] MEDS ORDERED: PROCHLORPERAZINE EDISYLATE 10 MG/2 ML VIAL IV PRN (08:00)
[2024-05-18] MEDS ORDERED: droPERidol 5 MG/2 ML VIAL IV PRN (08:00)
--- NOTE | 2024-05-18 08:17 | NUR ---
05/18/24 0817 Danielle Clifton 0804-PT ARRIVES TO PACU VIA STRETCHER, RESTING SEMI FOWLERS, PT RESPONSIVE TO NOXIOUS STIMULI BEGINNING TO OPEN EYES, OPA IN PLACE AND VSS ON 10L VIA MASK, RR EVEN AND UNLABORED. 0805-OPA REMOVED AND TITRATED TO RA, VS REMAIN STABLE. PT'S BP LOW, ANESTHESIA AT BEDSIDE, MEDICATION GIVEN. 0810-PT'S BP IMPROVED, VSS ON RA. PT DENIES PAIN OR NAUSEA.
[2024-05-18 08:40] VITALS: BP 103/59
--- NOTE | 2024-05-23 18:35 | PATH ---
[facility] [address] [place], [place] [address] Signed SPECIMEN(S): A LEFT LATERAL BASE PROSTATE BIOPSY SPECIMEN(S): B LEFT LATERAL MID PROSTATE BIOPSY SPECIMEN(S): C LEFT LATERAL APEX PROSTATE BIOPSY SPECIMEN(S): D LEFT MEDIAL BASE PROSTATE BIOPSY SPECIMEN(S): E LEFT MEDIAL MID PROSTATE BIOPSY SPECIMEN(S): F LEFT MEDIAL APEX PROSTATE BIOPSY SPECIMEN(S): G RIGHT MEDIAL BASE PROSTATE BIOPSY SPECIMEN(S): H RIGHT MEDIAL MID PROSTATE BIOPSY SPECIMEN(S): I RIGHT MEDIAL APEX PROSTATE BIOPSY SPECIMEN(S): J RIGHT LATERAL BASE PROSTATE BIOPSY SPECIMEN(S): K RIGHT LATERAL MID PROSTATE BIOPSY SPECIMEN(S): L RIGHT LATERAL APEX PROSTATE BIOPSY SPECIMEN(S): M LEFT TRANSITION ZONE SPECIMEN(S): N RIGHT TRANSITION ZONE CLINICAL HISTORY: Elevated PSA (last PSA 17.4 on 02/29/2024) FINAL PATHOLOGIC DIAGNOSIS: A. Left lateral base: - Benign prostatic glandular tissue. B. Left lateral mid: - Prostatic adenocarcinoma. - Predicted Milton score: 3 + 3 = 6/10; Grade Group 1 - Tumor quantitation: - Tumor present in one of one core. - Longest length of confluent tumor: 1 mm. - Tumor involves 5% of prostatic glandular tissue. - Perineural invasion: Not identified C. Left lateral apex: - Benign prostatic glandular tissue. D. Left medial base: - Benign prostatic glandular tissue. E. Left medial mid: - Benign prostatic glandular tissue. F. Left medial apex: - Benign prostatic glandular tissue. G. Right medial base: - Benign soft tissue, negative for glandular epithelium or malignancy. H. Right medial mid: - Benign prostatic glandular tissue. PATIENT NAME: KHARI WEEKS PATHOLOGY DATE OF : 46 REPORT #: [id number] PHYSICIAN: SANDRO RAMIREZ PCP: OTHER PCP REPORT IS CONFIDENTIAL AND NOT TO BE RELEASED WITHOUT AUTHORIZATION [facility] [address] [place], [place] [address] Signed I. Right medial apex: - Benign prostatic glandular tissue with focal chronic stromal and glandular inflammation. J. Right lateral base: - Benign prostatic glandular tissue. K. Right lateral mid: - Benign prostatic glandular tissue. L. Right lateral apex: - Prostatic adenocarcinoma. - Predicted Milton score: 3 + 3 = 6/10; Grade Group 1 - Tumor quantitation: - Tumor present in one of one core. - Longest length of confluent tumor: 1.3 mm. - Tumor involves 8% of prostatic glandular tissue. - Perineural invasion: Not identified M. Left transition zone: - Benign prostatic glandular tissue. N. Right transition zone: - Benign prostatic glandular tissue. COMMENT: As part of [facility]' Quality Improvement Program, this case was reviewed by another member of our pathology staff. [employer] [facility] Prostate testing has been requested on block L1 and the results will be reported in an addendum. JVR:[facility] MICROSCOPIC EXAMINATION: Histologic sections of all submitted blocks are examined by light microscopy. These findings, together with the gross examination, support the pathologic diagnosis. Immunohistochemical staining, with appropriately reactive controls, for p63, high molecular weight cytokeratin, and AMACR (TriCAP--prostate cocktail multiplex stain) was performed on blocks B1 and L1. There is a complete absence of basal marker (p63, HMWK) expression combined with cytoplasmic AMACR expression in the focus/foci of interest. These results support the diagnosis of prostatic adenocarcinoma. Immunohistochemical staining, with appropriately reactive controls, for p63, high molecular weight cytokeratin, and AMACR (TriCAP--prostate cocktail multiplex stain) was performed on block I1. There PATIENT NAME: KHARI WEEKS PATHOLOGY DATE OF : 46 REPORT #: [id number] PHYSICIAN: SANDRO RAMIREZ PCP: OTHER PCP REPORT IS CONFIDENTIAL AND NOT TO BE RELEASED WITHOUT AUTHORIZATION [facility] [address] [place], [place] [address] Signed is at least partial basal marker (p63, HMWK) expression and only [id number] AMACR expression in the focus/foci of interest. This constellation of findings is indicative of a benign process, such as partial atrophy, and argues against the possibility of prostatic adenocarcinoma. JVR:[facility] SPECIMEN SOURCE AND GROSS DESCRIPTION : The specimens are received in formalin in fourteen parts. They are labeled and designated "Efren Weeks" and further designated with the site listed below. They are all inked blue. A. SPECIMEN: Left lateral base. PIECES: One. CORE LENGTH: 1.5 cm. All in (A1). B. SPECIMEN: Left lateral mid. PIECES: One. CORE LENGTH: 1.6 cm. All in (B1). C. SPECIMEN: Left lateral apex. PIECES: One. CORE LENGTH: 1.6 cm. All in (C1). D. SPECIMEN: Left medial base. PIECES: One. CORE LENGTH: 1.8 cm. All in (D1). E. SPECIMEN: Left medial mid. PIECES: Two. CORE LENGTH: 0.6-1.1 cm. All in (E1). F. SPECIMEN: Left medial apex. PIECES: Two. CORE LENGTH: 0.6-1.3 cm. All in (F1). G. SPECIMEN: Right medial base. PIECES: One. CORE LENGTH: 1.7 cm. All in (G1). H. SPECIMEN: Right medial mid. PIECES: One. CORE LENGTH: 1.9 cm. All in (H1). I. SPECIMEN: Right medial apex. PIECES: Two. CORE LENGTH: 0.8-1.0 cm. All in (I1). J. SPECIMEN: Right lateral base. PIECES: One. CORE LENGTH: 1.3 cm. All in (J1). K. SPECIMEN: Right lateral mid. PIECES: One. CORE LENGTH: 1.7 cm. All in (K1). L. SPECIMEN: Right lateral apex. PIECES: One. CORE LENGTH: 1.9 cm. All in (L1). M. SPECIMEN: Left transition zone. PIECES: Two. CORE LENGTH: 0.5-1.5 cm. All in (M1). N. SPECIMEN: Right transition zone. PIECES: One. CORE LENGTH: 1.8 cm. All in (N1). AB (under the direct supervision of a pathologist) The Gross Description was prepared using a voice recognition system. The report was reviewed for accuracy; however, sound-alike word errors, addition and/or deletions may occur. If there is any question about this report, please contact Client Services. ADDITIONAL NOTES: Immunohistochemical and/or in situ hybridization studies were performed on this case with the appropriate positive controls that react as expected. This test PATIENT NAME: KHARI WEEKS PATHOLOGY DATE OF : 46 REPORT #: [id number] PHYSICIAN: SANDRO PATHOLOGY PCP: OTHER PCP REPORT IS CONFIDENTIAL AND NOT TO BE RELEASED WITHOUT AUTHORIZATION [facility] [address] [place] [place] [address] Signed was developed and its performance characteristics determined by [facility]. It has not been cleared or approved by the U.S. Food and Drug Administration. The FDA has determined that such clearance or approval is not necessary. This test is used for clinical purposes. It should not be regarded as investigational or for research. [facility] is certified under the Clinical Laboratory Improvement Amendments of 1988 (CLIA) as qualified to perform high complexity clinical laboratory testing. PERFORMING LABORATORY: Technical component was performed by [facility], [address] [place] [address] (CLIA# [id number]). Professional interpretation was performed by [facility], [address] [place] [id number] (CLIA#: [id number]). �Specimen[employer] Diagnostician: Bennett Baires MD Pathologist Electronically Signed 05/23/2024 Copies: ~ PATIENT NAME: KHARI WEEKS PATHOLOGY DATE OF : 46 REPORT #: [id number] PHYSICIAN: SANDRO PATHOLOGY PCP: OTHER PCP REPORT IS CONFIDENTIAL AND NOT TO BE RELEASED WITHOUT AUTHORIZATION
== END 2024-05-18 08:45 | disposition home or self-care (01) ==
LOC: US 05:38 → DS 05:38 → US 07:00 → EDSTATUS 07:30 → US 07:30 → DS 08:45
PROVIDERS: ATTEND Urology
PROC: 0VB03ZX Excision of Prostate, Percutaneous Approach, Diagnostic (ICD-10-PCS; principal; 2024-05-18 07:30)
DX: C61 Malignant neoplasm of prostate (principal); N41.1 Chronic prostatitis; D29.1 Benign neoplasm of prostate; Z79.899 Other long term (current) drug therapy
CPT/HCPCS: 00860; 76942; 88344; G0416; J0696; J7121